=== PATIENT | female | born 1965 | race Caucasian/White ===

== ENCOUNTER → 2019-08-10 14:45 | Outpatient (CLI) | payer BC, SELFPAY ==
--- NOTE | ~2019-08-10 | US_ITS ---
US retroperitoneal comp 08/10/2019 15:16 Procedure: Realtime transabdominal ultrasound of the kidneys and bladder. Indication: Acute renal failure Comparison: No prior studies Findings: Renal echotexture is normal bilaterally without hydronephrosis, contour deforming mass or r enal calculus. The right kidney measures 8 cm and left kidney measures 9.6 cm. Bladder within normal limits. Impression: 1: Unremarkable renal ultrasound. No stones, masses or hydronephrosis. Reviewed, dictated and finalized at location A. WARE MANAGER Impression: 1: Unremarkable renal ultrasound. No stones, masses or hydronephrosis.
== END ==
PROVIDERS: PCP Family Medicine
DX: N17.9 Acute kidney failure, unspecified (principal)
CPT/HCPCS: 76770

== ENCOUNTER → 2019-08-10 14:51 | Outpatient (CLI) | payer BC, SELFPAY ==
--- NOTE | ~2019-08-10 | MM_ITS ---
EXAMINATION: MM screening nneka BI w jaspal HISTORY: Screening mammogram TECHNIQUE: Craniocaudal and mediolateral oblique 3-D tomosynthesis images were obtained and synthetic 2-D images were generated. CAD analysis was submitted and interpreted. COMPARISON: None, BREAST PARENCHYMAL COMPOSITION: There are scattered areas of fibroglandular density. FINDINGS: RIGHT BREAST: An asymmetry is present in the far posterior third of the outer breast best appreciated 9 cm from the nipple on the craniocaudal view on tomosynthesis image 23/71. LEFT BREAST: A mass is present in the middle/posterior third of the inner breast 6 cm from the nipple . IMPRESSION: 1. Right breast asymmetry and left breast mass. 2. Additional mammographic views and possible breast ultrasound are recommended to evaluate for malig karlos and establish a baseline given that this is the first mammographic examination. BI-RADS Category 0: Incomplete: Needs additional imaging evaluation. Reviewed, dictated and finalized at location A. ER CUTTER IMPRESSION: 1. Right breast asymmetry and left breast mass. 2. Additional mammographic views and possible breast ultrasound are recommended to evaluate for malignancy and establish a baseline given that this is the fir st mammographic examination. BI-RADS Category 0: Incomplete: Needs additional imaging evaluation.
== END ==
PROVIDERS: PCP Family Medicine; Visit Provider Nurse Practitioner Family
DX: Z12.31 Encounter for screening mammogram for malignant neoplasm of breast (principal); R92.8 Other abnormal and inconclusive findings on diagnostic imaging of breast
CPT/HCPCS: 77063; 77067

== ENCOUNTER → 2019-09-15 08:40 | Outpatient (CLI) | payer BC, SELFPAY ==
--- NOTE | ~2019-09-15 | MMUS_ITS ---
EXAMINATION: MM diagnostic mammo BI, US breast LT limited HISTORY: 1. Left breast mass in middle/posterior third of inner breast 6 cm from nipple on 08/10/2019 screening mammogram 2. Asymmetry in far posterior third of outer right breast 9 cm from nipple on craniocaudal view Tomos ynthesis image TECHNIQUE: Additional 3-D tomosynthesis images of both breasts were performed and synthetic 2-D image s were generated. CAD analysis was submitted and interpreted. High resolution upper inner quadrant le ft breast ultrasound was performed. COMPARISON: 08/10/2019 bilateral digital screening mammogram FINDINGS: MAMMOGRAPHIC FINDINGS: 8 9 x 12 mm circumscribed mass with halo is noted in the upper inner quadrant of the left breast at m id to posterior depth A benign appearing approximately 3.5 x 4.5 mm intramammary lymph node is noted in the right axillary tail. ULTRASOUND: 9:00 3 cm from nipple: There is a circumscribed approximately 8 x 10 x 12 mm hypoechoic mass with zaida e posterior shadowing. No internal vascularity is evident. Considering the posterior shadowing, ultra sound-guided biopsy is recommended. IMPRESSION: 1. Left breast 9:00 location 12 mm mass with posterior shadowing 2. Ultrasound-guided biopsy is recommended for left breast 9:00 mass BI-RADS category 4, suspicious findings. Dr. Bedolla telephoned the report and left breast ultrasound-guided biopsy recommendation to Dr. Turk 's nurse Kristal on 09/15/2019 at 0938 hours. Reviewed, dictated and finalized at location A. IMPRESSION: 1. Left breast 9:00 location 12 mm mass with posterior shadowing 2. Ultrasound-guided biopsy is recommended for left breast 9:00 mass BI-RADS category 4, suspicious findings. Dr. Bedolla telephoned the report and left breast ultrasound-guided biopsy recomme ndation to Dr. Turk's nurse Kristal on 09/15/2019 at 0938 hours.
== END ==
PROVIDERS: PCP Family Medicine; Visit Provider Obstetrics & Gynecology Gynecology
DX: R92.8 Other abnormal and inconclusive findings on diagnostic imaging of breast (principal)
CPT/HCPCS: 76642; 77066